=== PATIENT | female | born 1945 | race African-American/Black ===

== ENCOUNTER 2017-01-07 06:51 | Observation (INO) | payer MEDICARE, OTHER ==
[~2017-01-07] VITALS: Ht 170.2 cm; Wt 99.8 kg
[2017-01-07] VITALS (7 sets, daily range): BP systolic 109–146; BP diastolic 42–68
[2017-01-07] MEDS ORDERED: fentaNYL PF VIAL 100 MCG/2 ML VIAL IV PRN (07:00)
[2017-01-07] MEDS ORDERED: PROCHLORPERAZINE 10 MG/2 ML VIAL. IV PRN (07:00)
[2017-01-07] MEDS ORDERED: ONDANSETRON PF 4 MG/2 ML VIAL. IV PRN ×2 (07:00→12:30)
[2017-01-07] MEDS ORDERED: LIDOCAINE 1% 1 ML SYRINGE. ID PRN (07:00)
[2017-01-07] MEDS ORDERED: IV RINGERS,LACTATED 1000ML 1,000 ML IV SCH (07:00)
[2017-01-07] MEDS ORDERED: BENA1TAB6 PO (07:20)
[2017-01-07] MEDS ORDERED: FLUT9.9S NS (07:22)
[2017-01-07] MEDS ORDERED: MULT1TAB52 PO (07:22)
[2017-01-07] MEDS ORDERED: PROAIR HFA8.5 GM INH (07:23)
[2017-01-07] MEDS ORDERED: GINK30CA PO (07:26)
[2017-01-07 07:49] LABS: BASO # 0.1 x10^3/uL (0.0-0.2); BASO % 1 % (0-3); EOS % 1 % (0-3); HEMATOCRIT 44.3 % (36.0-47.0); HEMOGLOBIN 14.8 g/dL (12.0-15.5); LYMPH # 2.9 x10^3/uL (1.0-4.8); LYMPH % 35 % (24-48); MEAN CORPUSCULAR HEMOGLOBIN 32 pg (25-35); MEAN CORPUSCULAR HGB CONC 33 g/dL (31-37); MEAN CORPUSCULAR VOLUME 95 fL (79-100); MONO % 8 % (0-9); NEUT % 56 % (31-73); PLATELET COUNT 242 x10^3/uL (140-400); RED BLOOD COUNT 4.67 x10^6/uL (3.50-5.40); RED CELL DISTRIBUTION WIDTH 12.5 % (11.5-14.5); WHITE BLOOD COUNT 8.4 x10^3/uL (4.0-11.0)
[2017-01-07 07:50] LABS: CALCIUM 9.5 mg/dL (8.5-10.1); CREATININE 0.9 mg/dL (0.6-1.0); GFR 74.7; POTASSIUM 3.8 mmol/L (3.5-5.1)
[2017-01-07 07:56] LABS: ALBUMIN 3.9 g/dL (3.4-5.0); TOTAL BILIRUBIN 0.7 mg/dL (0.2-1.0)
[2017-01-07 08:09] LABS: INR 1.1 (0.8-1.1); PROTHROMBIN TIME PATIENT 13.5 SEC (11.7-14.0)
[2017-01-07] MEDS ORDERED: IOHEXOL 300 MG/ML 50 ML VIAL. ONE (08:37)
[2017-01-07] MEDS ORDERED: BUPIVACAINE-EPI 0.25%-1:200000 MPF 30 ML VIAL. ONE (08:37)
[2017-01-07] MEDS ORDERED: DEXAMETHASONE SOD PHOS 20 MG/5 ML VIAL. ONE (08:45)
[2017-01-07] MEDS ORDERED: SUCCINYLCHOLINE 200 MG/10 ML VIAL. ONE (08:45)
[2017-01-07] MEDS ORDERED: ROCURONIUM 100 MG/10 ML VIAL. ONE (08:45)
[2017-01-07] MEDS ORDERED: ONDANSETRON PF 4 MG/2 ML VIAL. ONE (08:45)
[2017-01-07] MEDS ORDERED: PROPOFOL 20 ML IV ONE (08:45)
[2017-01-07] MEDS ORDERED: LIDOCAINE 2% PF Vial for OR 5 ML VIAL. ONE (08:45)
[2017-01-07] MEDS ORDERED: fentaNYL PF VIAL 100 MCG/2 ML VIAL ONE ×2 (08:45→10:17)
[2017-01-07] MEDS ORDERED: SCOPOLAMINE 1.5MG PATCH. TD ONE (09:00)
--- NOTE | 2017-01-07 09:44 | PDOC ---
SURGICAL PROGRESS NOTE Subjective No change in dictated H&P. Vital Signs Vital Signs Date Time Temp Pulse Resp B/P (MAP) Pulse Ox O2 Delivery O2 Flow Rate FiO2 01/07/17 07:30 97.7 65 16 120/56 95 Room Air 97.7 Labs Laboratory Tests Test 01/07/17 07:35 White Blood Count 8.4 x10^3/uL (4.0-11.0) Red Blood Count 4.67 x10^6/uL (3.50-5.40) Hemoglobin 14.8 g/dL (12.0-15.5) Hematocrit 44.3 % (36.0-47.0) Mean Corpuscular Volume 95 fL (79-100) Mean Corpuscular Hemoglobin 32 pg (25-35) Mean Corpuscular Hemoglobin Concent 33 g/dL (31-37) Red Cell Distribution Width 12.5 % (11.5-14.5) Platelet Count 242 x10^3/uL (140-400) Neutrophils (%) (Auto) 56 % (31-73) Lymphocytes (%) (Auto) 35 % (24-48) Monocytes (%) (Auto) 8 % (0-9) Eosinophils (%) (Auto) 1 % (0-3) Basophils (%) (Auto) 1 % (0-3) Neutrophils # (Auto) 4.7 x10^3uL (1.8-7.7) Lymphocytes # (Auto) 2.9 x10^3/uL (1.0-4.8) Monocytes # (Auto) 0.6 x10^3/uL (0.0-1.1) Eosinophils # (Auto) 0.1 x10^3/uL (0.0-0.7) Basophils # (Auto) 0.1 x10^3/uL (0.0-0.2) Prothrombin Time 13.5 SEC (11.7-14.0) Prothromb Time International Ratio 1.1 (0.8-1.1) Activated Partial Thromboplast Time 30 SEC (24-38) Sodium Level 137 mmol/L (136-145) Potassium Level 3.8 mmol/L (3.5-5.1) Chloride Level 104 mmol/L (98-107) Carbon Dioxide Level 28 mmol/L (21-32) Anion Gap 5 (6-14) Blood Urea Nitrogen 13 mg/dL (7-20) Creatinine 0.9 mg/dL (0.6-1.0) Estimated GFR (Cockcroft-Gault) 74.7 BUN/Creatinine Ratio 14 (6-20) Glucose Level 120 mg/dL (70-99) Calcium Level 9.5 mg/dL (8.5-10.1) Total Bilirubin 0.7 mg/dL (0.2-1.0) Aspartate Amino Transf (AST/SGOT) 21 U/L (15-37) Alanine Aminotransferase (ALT/SGPT) 25 U/L (14-59) Alkaline Phosphatase 36 U/L (46-116) Total Protein 8.0 g/dL (6.4-8.2) Albumin 3.9 g/dL (3.4-5.0) Albumin/Globulin Ratio 1.0 (1.0-1.7) Laboratory Tests Test 01/07/17 07:35 White Blood Count 8.4 x10^3/uL (4.0-11.0) Red Blood Count 4.67 x10^6/uL (3.50-5.40) Hemoglobin 14.8 g/dL (12.0-15.5) Hematocrit 44.3 % (36.0-47.0) Mean Corpuscular Volume 95 fL (79-100) Mean Corpuscular Hemoglobin 32 pg (25-35) Mean Corpuscular Hemoglobin Concent 33 g/dL (31-37) Red Cell Distribution Width 12.5 % (11.5-14.5) Platelet Count 242 x10^3/uL (140-400) Neutrophils (%) (Auto) 56 % (31-73) Lymphocytes (%) (Auto) 35 % (24-48) Monocytes (%) (Auto) 8 % (0-9) Eosinophils (%) (Auto) 1 % (0-3) Basophils (%) (Auto) 1 % (0-3) Neutrophils # (Auto) 4.7 x10^3uL (1.8-7.7) Lymphocytes # (Auto) 2.9 x10^3/uL (1.0-4.8) Monocytes # (Auto) 0.6 x10^3/uL (0.0-1.1) Eosinophils # (Auto) 0.1 x10^3/uL (0.0-0.7) Basophils # (Auto) 0.1 x10^3/uL (0.0-0.2) Prothrombin Time 13.5 SEC (11.7-14.0) Prothromb Time International Ratio 1.1 (0.8-1.1) Activated Partial Thromboplast Time 30 SEC (24-38) Sodium Level 137 mmol/L (136-145) Potassium Level 3.8 mmol/L (3.5-5.1) Chloride Level 104 mmol/L (98-107) Carbon Dioxide Level 28 mmol/L (21-32) Anion Gap 5 (6-14) Blood Urea Nitrogen 13 mg/dL (7-20) Creatinine 0.9 mg/dL (0.6-1.0) Estimated GFR (Cockcroft-Gault) 74.7 BUN/Creatinine Ratio 14 (6-20) Glucose Level 120 mg/dL (70-99) Calcium Level 9.5 mg/dL (8.5-10.1) Total Bilirubin 0.7 mg/dL (0.2-1.0) Aspartate Amino Transf (AST/SGOT) 21 U/L (15-37) Alanine Aminotransferase (ALT/SGPT) 25 U/L (14-59) Alkaline Phosphatase 36 U/L (46-116) Total Protein 8.0 g/dL (6.4-8.2) Albumin 3.9 g/dL (3.4-5.0) Albumin/Globulin Ratio 1.0 (1.0-1.7) BRAYAN WHEELER MD Jan 07, 2017 09:44
--- NOTE | 2017-01-07 09:46 | PDOC4 ---
OPERATIVE NOTE: Surgeon.........................Stevan Pre op diagnosis.............chronic cholecystitis cholelithiasis Post op diagnosis............same with adhesions Procedure........................lap cholecystectomy with grams and laparoscopic enterolysis Anesthesia......................general Fluids.............................see anesthesia sheet Blood loss......................20 Drains.............................none Condition........................satisfactory BRAYAN WHEELER MD Jan 07, 2017 09:46
[2017-01-07] MEDS ORDERED: ePHEDrine PF IN SALINE 50 MG/5 ML DISP.SYRIN IV ONE (10:09)
[2017-01-07] MEDS ORDERED: GLYCOPYRROLATE 1 MG/5 ML VIAL. ONE (10:09)
[2017-01-07] MEDS ORDERED: PHENYLEPHRINE in 0.9% NACL PF 1 MG/10 ML DISP.SYRIN. IV ONE (10:20)
[2017-01-07] MEDS ORDERED: ESMOLOL 100 MG/10 ML VIAL. IV ONE (10:38)
--- NOTE | 2017-01-07 11:06 | RAD ---
Indication operative cholangiogram. Protocol study. Assess for choledocholithiasis. Assess for potential aberrant anatomy. For members of the Department of surgery fluoroscopy was provided. 2 spot fluoroscopic images were obtained. Fluoroscopy time associated with the imaging was 11 seconds. Those intrahepatic radicles which are seen appear normal. The common hepatic and common bile ducts appear normal. No filling defects are seen. Contrast flows unremarkably into the duodenum. IMPRESSION: Normal operative cholangiogram
[2017-01-07] MEDS ORDERED: BUPIVACAINE-EPI 0.5%-1:200000 50 ML VIAL. ONE (11:46)
[2017-01-07] MEDS ORDERED: MAGNESIUM HYDROXIDE 2,400 MG/30 ML ORAL.SUSP. PO PRN (12:30)
[2017-01-07] MEDS: fentaNYL PF VIAL 100 MCG/2 ML VIAL IV PRN ×4 (12:30→13:36)
[2017-01-07] MEDS ORDERED: 0.9 % SODIUM CHLORIDE 10 ML DISP.SYRIN. IV PRN (12:30)
[2017-01-07] MEDS: ACETAMINOPHEN/CODEINE 300/30MG TABLET. PO PRN ×3 (14:39→22:57)
[2017-01-07] MEDS: POTASSIUM CL 20MEQ-0.45% NACL 1,000 ML IV SCH (14:41)
--- NOTE | 2017-01-07 17:42 | OP ---
DATE OF SURGERY: SURGEON: Michael Wheeler MD. PREOPERATIVE DIAGNOSES: Chronic cholecystitis and cholelithiasis. POSTOPERATIVE DIAGNOSES: Chronic cholecystitis and cholelithiasis and mass of adhesions to the gallbladder. ANESTHESIA: General. PROCEDURE: Laparoscopic cholecystectomy with massive enterolysis. This was done laparoscopically also and the gallbladder was laparoscopic. TECHNIQUE: Under general anesthesia, the patient was properly prepped and draped in a routine fashion. The patient has never had surgery before and as such, an infraumbilical incision was made, carried down through the skin about 3/4 of an inch in the midline. This was done with a 15 blade. We then pulled up on either side with towel clips and passed a Veress needle into the peritoneal cavity. We instilled just small bit of saline about 2 to 3 drops let it go in with gravity and then insufflated the abdomen with CO2 up to 15. We then placed 11-12 cm trocar in this area and then placed the camera there. We inspected the abdomen, we could not see the gallbladder as adhesions were over it. As such, we then placed a 5 mm trocar in the epigastrium just to the right of the falciform ligament and then placed a 5 mm in the right upper quadrant and one laterally. We did this under direct visualization and there was no injury to the intra-abdominal contents. We then placed the patient in reverse Trendelenburg left side down and immediately knew we could not do the gallbladder until we remove these adhesions. There was fatty tissue up over it, did not appear to be any bowel there, but a lot of fat that assumed it was from the omentum. We slowly pulled this way from the liver and did see a large liver cyst, probably of 4-6 cm in size just anterior to the liver. The gallbladder did not touch it, but was just below it. As such, we had to free up these adhesions, we did use Harmonic scalpel to pull them away and did this gently making certain not to injure any intraabdominal contents the gallbladder or the cyst. These adhesions were slowly pulled away and we were then able to see the gallbladder pretty good. We grasped the gallbladder at this fundus with the right lateral grasper pushed up toward the right shoulder and then grasped at the ampulla with the right upper quadrant grasper. We were able to dissect the scar tissue around and identified the cystic artery and cystic duct. When encircled the cystic duct close to the gallbladder opened it and beneath it. We then inspected the area, all was well and we then clipped the cystic duct high up on the gallbladder with 2 clips. We then made a small incision using scissors in the cystic duct close to the clip of the gallbladder and then through a needle and then I placed the catheter that had the dye and placed it in the abdomen. We then put this in the cystic duct and clipped it in place. We got cholangiograms and the radiologist agree there were no filling defects, no difficulties and the cholangiogram was normal. Dye flowed freely into the peritoneum and to duodenum. There was no extravasation. Next, we then proceeded to remove the catheter, we placed all the laparoscopic equipment back in the abdomen and removed the clip holding the catheter in place, removed the catheter and just needed. We then clipped the cystic duct, three times on the patient's side and divided it. We then clipped the cystic duct high on the gallbladder and then placed 3 on the patient's side of the gallbladder and divided it. We then used Harmonic scalpel was slowly shelled the gallbladder out of the gallbladder fossa. Having done this, we then before we removed the gallbladder completely and examined the hilum, there were no bile leaks, no blood, no bleeding and no abnormalities. The gallbladder was then amputated from the liver tip. We then placed a 5 mm camera in the epigastric port and through the umbilical port placed the EndoCatch basket. We then placed the gallbladder in this and closed it and then followed it over we could not get the gallbladder completely out because of the stone and as such made a small incision inferiorly and made a small incision, we then got the gallbladder out and then passed. We then cut the CO2 out of the abdomen and then placed 3 number 0 Prolene sutures to close this fascia. We did this and then inspected the abdomen, removed all the blood, which was not much about 15 mL and then removed all the CO2 of the abdomen and trocars and instruments. We closed the resultant defect using 4-0 Vicryl in subcutaneous and the skin was closed in all locations using 5-0 subcuticular Vicryl. We then closed the applied Tegaderm dressings and the procedure was basically terminated. ESTIMATED BLOOD LOSS: Less than 20 mL. DRAINS: No drains were used. Fluids given can be obtained from the anesthesia sheet. CONDITION OF THE PATIENT: Satisfactory as she is returned to the recovery room. MICHAEL WHEELER MD DR: ROWDY/asya JOB#: [id number] / [id number]
[2017-01-07] MEDS: DOCUSATE SODIUM 100 MG CAPSULE. PO SCH (20:24)
[2017-01-07] MEDS: FAMOTIDINE 20 MG/2 ML VIAL IVP SCH (20:25)
[2017-01-08] MEDS: POTASSIUM CL 20MEQ-0.45% NACL 1,000 ML IV SCH ×2 (01:37→08:28)
[2017-01-08 02:32] VITALS: BP 113/49
[2017-01-08] MEDS: ACETAMINOPHEN/CODEINE 300/30MG TABLET. PO PRN (05:58)
[2017-01-08 07:00] VITALS: BP 128/55
[2017-01-08] MEDS: DOCUSATE SODIUM 100 MG CAPSULE. PO SCH (08:59)
[2017-01-08] MEDS: FAMOTIDINE 20 MG/2 ML VIAL IVP SCH (08:59)
--- NOTE | 2017-01-08 10:46 | PDOC ---
SURGICAL PROGRESS NOTE Subjective POD#1 Doing well without nausea and no vomiting. Abd and wounds healing without complication and lab not done yet. Instructions given and will discharge today and see in office in 10-14 days. Vital Signs Vital Signs Date Time Temp Pulse Resp B/P (MAP) Pulse Ox O2 Delivery O2 Flow Rate FiO2 01/08/17 08:00 Room Air 01/08/17 07:00 96.8 60 20 128/55 (79) 93 96.8 01/07/17 18:37 2.0 I&O Intake and Output 01/09/17 07:00 Intake Total 200 ml Balance 200 ml Intake Oral 200 ml Labs Laboratory Tests Test 01/07/17 07:35 White Blood Count 8.4 x10^3/uL (4.0-11.0) Red Blood Count 4.67 x10^6/uL (3.50-5.40) Hemoglobin 14.8 g/dL (12.0-15.5) Hematocrit 44.3 % (36.0-47.0) Mean Corpuscular Volume 95 fL (79-100) Mean Corpuscular Hemoglobin 32 pg (25-35) Mean Corpuscular Hemoglobin Concent 33 g/dL (31-37) Red Cell Distribution Width 12.5 % (11.5-14.5) Platelet Count 242 x10^3/uL (140-400) Neutrophils (%) (Auto) 56 % (31-73) Lymphocytes (%) (Auto) 35 % (24-48) Monocytes (%) (Auto) 8 % (0-9) Eosinophils (%) (Auto) 1 % (0-3) Basophils (%) (Auto) 1 % (0-3) Neutrophils # (Auto) 4.7 x10^3uL (1.8-7.7) Lymphocytes # (Auto) 2.9 x10^3/uL (1.0-4.8) Monocytes # (Auto) 0.6 x10^3/uL (0.0-1.1) Eosinophils # (Auto) 0.1 x10^3/uL (0.0-0.7) Basophils # (Auto) 0.1 x10^3/uL (0.0-0.2) Prothrombin Time 13.5 SEC (11.7-14.0) Prothromb Time International Ratio 1.1 (0.8-1.1) Activated Partial Thromboplast Time 30 SEC (24-38) Sodium Level 137 mmol/L (136-145) Potassium Level 3.8 mmol/L (3.5-5.1) Chloride Level 104 mmol/L (98-107) Carbon Dioxide Level 28 mmol/L (21-32) Anion Gap 5 (6-14) Blood Urea Nitrogen 13 mg/dL (7-20) Creatinine 0.9 mg/dL (0.6-1.0) Estimated GFR (Cockcroft-Gault) 74.7 BUN/Creatinine Ratio 14 (6-20) Glucose Level 120 mg/dL (70-99) Calcium Level 9.5 mg/dL (8.5-10.1) Total Bilirubin 0.7 mg/dL (0.2-1.0) Aspartate Amino Transf (AST/SGOT) 21 U/L (15-37) Alanine Aminotransferase (ALT/SGPT) 25 U/L (14-59) Alkaline Phosphatase 36 U/L (46-116) Total Protein 8.0 g/dL (6.4-8.2) Albumin 3.9 g/dL (3.4-5.0) Albumin/Globulin Ratio 1.0 (1.0-1.7) BRAYAN WHEELER MD Jan 08, 2017 10:46
[2017-01-08 10:48] LABS: BASO % 0 % (0-3); EOS % 0 % (0-3); HEMATOCRIT 39.8 % (36.0-47.0); HEMOGLOBIN 13.6 g/dL (12.0-15.5); LYMPH # 2.3 x10^3/uL (1.0-4.8); LYMPH % 15 % (24-48); MEAN CORPUSCULAR HEMOGLOBIN 32 pg (25-35); MEAN CORPUSCULAR HGB CONC 34 g/dL (31-37); MEAN CORPUSCULAR VOLUME 94 fL (79-100); MONO % 7 % (0-9); NEUT % 78 % (31-73); PLATELET COUNT 220 x10^3/uL (140-400); RED BLOOD COUNT 4.23 x10^6/uL (3.50-5.40); RED CELL DISTRIBUTION WIDTH 12.5 % (11.5-14.5); WHITE BLOOD COUNT 15.7 x10^3/uL (4.0-11.0)
[2017-01-08 11:00] VITALS: BP 129/61
[2017-01-08 11:02] LABS: CREATININE 1.1 mg/dL (0.6-1.0); GFR 59.2; POTASSIUM 4.1 mmol/L (3.5-5.1)
[2017-01-08 11:07] LABS: ALBUMIN 3.2 g/dL (3.4-5.0); ALBUMIN/GLOBULIN RATIO 0.8 (1.0-1.7); TOTAL BILIRUBIN 0.9 mg/dL (0.2-1.0); TOTAL PROTEIN 7.1 g/dL (6.4-8.2)
--- NOTE | 2017-01-08 16:08 | DS ---
DATE OF DISCHARGE: 01/08/2017 HOSPITAL COURSE: The patient had on 01/07/2017 a laparoscopic cholecystectomy for chronic cholecystitis and cholelithiasis. She did have a lot of adhesions. These were taken down. We still did the exam and the surgery and also had a normal cholangiogram during surgery. Postoperatively, she is doing well. Today, she has no nausea, no vomiting. She has taken liquids p.o. without difficulties. The lab was just drawn, but she has no fever. Vital signs were stable. She has been up and about, walking around without difficulties. She was given instructions that when she goes home, she will wear the binder when she is out of bed, not when she is in bed and also may shower. She will not drive for 24-48 hours from the time of surgery and I will see her back in the office in 10-14 days. She will call and make that appointment. IMPRESSION: 1. Chronic cholecystitis and cholelithiasis. 2. 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 BRAYAN WHEELER MD DR: ROWDY/asya JOB#: [id number] / [id number]
--- NOTE | 2017-01-10 17:26 | PATHOLOGY ---
PATHOLOGY REPORT * * * * * * * * FINAL DIAGNOSIS: Gallbladder, laparoscopic cholecystectomy: - Cholelithiasis. - Chronic cholecystitis. COMMENT: There is no evidence of malignancy. (JPM:; 01/10/2017) REPORT ELECTRONICALLY SIGNED BY: Blair Suarez M.D. DATE/TIME: 01/10/2017 17:25 * * * * * * * * GROSS PATHOLOGY: Received in formalin labeled "Dayanna Ramirez, gallbladder and its contents," is a 7.8 x 3.7 x 3.2 cm, intact gallbladder with bluegreenish, slightly wrinkled, and highly vascular serosal surfaces. Opening the gallbladder reveals dark green, velvety mucosa, slightly rippled with yellow highlights, and an average wall thickness of 0.2 cm. Calculi are present, measuring 1.6 cm in maximum dimension, possessing a dark green granular appearance, and feeling firm to the touch. No masses are noted grossly. Gallery Host sections from the body and fundus are submitted along with the proximal margin in cassette A1. (TSD; 01/07/2017) INITIAL CPT CODE(S): A; 78030 Professional services performed [place] [address] Technical services performed by [facility] at [address] [place] [address], [facility] [address] [address]. SPECIMEN(S) RECEIVED: A.Gallbladder and its contents CLINICAL HISTORY: Pending PATIENT: DAYANNA ARMIREZ /AGE: 901/22/1945 (Age: 71) PATIENT #: [id number] ALT CASE #: SPECIMEN COLLECTION DATE: 01/07/2017 SPECIMEN RECEIVED DATE: 01/07/2017 [facility] - [id number] [place] [address] - PHONE: [phone] * * * END OF REPORT * * *
== END 2017-01-08 12:54 | disposition home or self-care (01) ==
LOC: SURG 06:51 → 4 NORTH 12:28
PROVIDERS: ADMIT Specialist; ATTEND Specialist
DX: K80.10 Calculus of gallbladder with chronic cholecystitis without obstruction (principal); K82.8 Other specified diseases of gallbladder; K66.0 Peritoneal adhesions (postprocedural) (postinfection)
CPT/HCPCS: 36415; 47563; 74300; 80053; 85025; 85610; 85730; 88304; 96365; 96375; 96376; G0378; G0379; J0330; J0690; J0780; J1100; J2370; J2405; J2704; J3010; J3490; J7030; Q9967; S0028; J2001